=== PATIENT | male | born 1985 | race African-American/Black ===

== ENCOUNTER 2017-03-08 17:11 | Emergency (ER) | payer OTHER ==
[~2017-03-08] VITALS: Ht 172.7 cm; Wt 86.2 kg
[~2017-03-08 17:11] MED LIST: ACETAMINOPHEN-1 EAC1 ORAL; AMOXICILLIN500 MG ORAL; AMOXIL250 MG ORAL; AUGMENTIN 875-1 EAC1 ORAL; CHLORHEXIDINE118 ML BC; CLINDAMYCIN HC300 MG ORAL; CYCLOBENZAPRINE10 MG ORAL; NAPROXEN375 MG ORAL; NKM; NORCO 10/3251 EA ORAL; NORCO 5-325 TA1 EACH ORAL; PERIDEX 0.12% O16 OZ ORAL; TYLENOL EXTRA500 MG ORAL; VICODIN 5-5001 EACH PO
--- NOTE | 2017-03-08 18:29 | Emergency Room Report ---
History of Present Illness General Chief Complaint: Back Pain-No Injury Source: Patient Present Illness HPI The patient is a 31-year-old male presenting for right mid back pain which began this morning for no known reason. The patient states that he used an old [place] at home which did not help. Pain is described as a 10 out of 10 dull ache in the right mid back and does not radiate. Pain is worse with movements such as bending over and twisting. The patient denies prior injury to this area. He denies any other symptoms including nausea, vomiting, fever, chills, numbness or tingling Allergies: Coded Allergies: IBUPROFEN (Verified Allergy, Unknown, 04/29/16) Patient History Past Medical History: see triage record Pertinent Family History: none Reviewed Nursing Documentation: PMH: Agreed, PSxH: Agreed Nursing Documentation-PMH Past Medical History: No Stated History Hx Hypertension: No Review of Systems All Other Systems: negative except mentioned in HPI Physical Exam Vital Signs Date Time Temp Pulse Resp B/P Pulse Ox O2 Delivery O2 Flow Rate FiO2 03/08/17 17:49 98.6 96 14 123/78 99 Room Air Sp02 EP Interpretation: reviewed, normal General Appearance: no apparent distress, alert, GCS 15, non-toxic Head: normocephalic, atraumatic Eyes: bilateral eye PERRL, bilateral eye normal inspection ENT: hearing grossly normal, normal pharynx, no angioedema, normal voice Neck: full range of motion, supple/symm/no masses Respiratory: chest non-tender, lungs clear, normal breath sounds, speaking full sentences Genitourinary: normal inspection, no CVA tenderness Musculoskeletal: normal range of motion, tender - TTP over R thoracic paraspinous muscles Neurologic: alert, oriented x3, responsive, motor strength/tone normal, sensory intact, normal gait, speech normal Psychiatric: judgement/insight normal, memory normal, mood/affect normal, no suicidal/homicidal ideation Skin: normal color, no rash, warm/dry, well hydrated Lymphatic: no adenopathy Medical Decision Making PA Attestation Dr. Dumont is my supervising physician. Patient management was discussed with my supervising physician Diagnostic Impression: Primary Impression: Muscle strain ER Course The patient is a 31-year-old male presenting for right mid back pain which began this morning for no known reason. Ddx considered include but not limited to sprain/strain, fracture, contusion PE: vitals WNL. NAD R mid back TTP paraspinous muscles. No obvious deformity. No midline tenderness or step-offs. Normal gait The patient will be discharged home with a prescription for Robaxin and he is to followup with PMD. The patient is advised that he may need MRI if pain continues or worsens. ER precautions are given Last Vital Signs Date Time Temp Pulse Resp B/P Pulse Ox O2 Delivery O2 Flow Rate FiO2 03/08/17 17:49 98.6 96 14 123/78 99 Room Air Status: improved Disposition: HOME, SELF-CARE Condition: Improved Scripts Methocarbamol* (ROBAXIN-750*) 750 Mg Tablet 750 MG PO TID, #21 TAB 0 Refills Prov: TRISTIAN GOODMAN 03/08/17 TRISTIAN GOODMAN Mar 08, 2017 18:29
[2017-03-08] MEDS ORDERED: ROBAXIN-750750 MG PO (18:30)
[2017-03-08] MEDS ORDERED: Methocarbamol 750mg tab ORAL ONE (18:30)
[2017-03-08 19:32] VITALS: BP 127/80
== END 2017-03-08 19:32 | disposition home or self-care (01) ==
LOC: EMR 18:38
DX: S39.012A Strain of muscle, fascia and tendon of lower back, initial encounter (principal); X58.XXXA Exposure to other specified factors, initial encounter; Y92.019 Unspecified place in single-family (private) house as the place of occurrence of the external cause; Z88.6 Allergy status to analgesic agent
CPT/HCPCS: 99283